=== PATIENT | female | born 1945 | race Caucasian/White ===

== ENCOUNTER 2019-04-26 19:25 | Inpatient (IN) | payer OTHER ==
[~2019-04-26] VITALS: Ht 152.4 cm; Wt 60.8 kg
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
[2019-04-26 21:09] LABS: BASOPHIL % 0.4 % (0-2)
[2019-04-26 21:13] LABS: RED CELL DISTRIBUTION WIDTH 16.1 % (11.5-14.5)
[2019-04-26 21:14] LABS: PLATELET COUNT 563 x10^3mcL (130-400)
[2019-04-26 21:16] LABS: CARBON DIOXIDE 28.6 mmol/L (21-32); CHLORIDE SERUM 92 mmol/L (98-107); CREATININE SERUM 0.5 mg/dL (0.6-1.0); GLUCOSE SERUM 90 mg/dL (74-106); POTASSIUM SERUM 4.1 mmol/L (3.5-5.1); SODIUM SERUM 126 mmol/L (136-145)
[2019-04-26 21:21] LABS: ALKALINE PHOSPHATASE 107 U/L (46-116); ALT/SGPT 20 U/L (14-59); AST/SGOT 11 U/L (15-37); BILIRUBIN TOTAL 0.3 mg/dL (0.20-1.00); TOTAL PROTEIN, SERUM 7.2 g/dL (6.4-8.2)
[2019-04-26 21:22] LABS: ALBUMIN 2.7 g/dL (3.4-5.0)
--- NOTE | 2019-04-26 21:35 | NUR ---
PT GIVEN 30MG TORADOL IVP AT THIS TIME FOR PAIN TO ATTEMPT TO GET ONTO BED BURRIS TO URINATE. VERBAL ORDER THAT WILL BE PLACED BY MD ROSADO
--- NOTE | 2019-04-26 21:54 | NUR ---
PT VOIDED AT THIS TIME IN BED BURRIS AND ASSISTED OFF OF BURRIS
[2019-04-26] MEDS ORDERED: METOPROLOL SUCC50 M2 PO ×2 (22:03)
--- NOTE | 2019-04-26 22:18 | NUR ---
RECEIVED REPORT FROM ED NURSE. AWAITING FOR ARRIVAL.
--- NOTE | 2019-04-26 22:19 | NUR ---
REPORT GIVEN TO YADIRA GUERRIER. ALL QUESTONS AND CONCERNS ADDRESSED AT THIS TIME
--- NOTE | 2019-04-26 22:40 | NUR ---
RECEIVED PT FROM ED [facility]IA [employer], PT STATED THAT SHE HAS LEFT HIP PAIN AND UNABLE TO WALK FOR 5 DAYS, STARTED WHEN SHE WAS TRYING TO GET OUT OF BED. PT DENIES FALL/SYNCOPAL EPISODES. AAOX4. DENIES HEADACHE/DIZZINESS. ABLE TO FOLLOW COMMANDS. NO SOB NOTED. LUNG SOUNDS CTA, O2 SAT=98%, RA. DENIES CHEST PAIN/PRESSURE, DD=104. W/ +3 EDEMA ON BILATERAL FEET AND +2 ON BLE. PULSES ARE PALPABLE. DENIES ABDOMINAL DISCOMFORT. LAST BM=04/26/18. URINE INCONTINENT. C/O 11/27 LEFT HIP PAIN WORSE ON MOVEMENT. PT HAS DEFORMITIES ON THE TOES. IV SITE PATENT AND INTACT. SIDE RAILS UPX2. CALL LIGHT ON REACH. ENDORSED TO PRIMARY NURSE CINDY FOR CONTINUITY OF CARE
[2019-04-26 22:55] VITALS: BP 158/97
[2019-04-26 23:03] VITALS: Ht 152.4 cm; Wt 60.8 kg
--- NOTE | 2019-04-26 23:11 | NUR ---
MADE DR. CRUZ AWARE PT DOES NOT LIKE NARCOTICS, TORADOL 15MG IV Q6H PRN WAS ORDERED. RECOMMENDED TO INSERT ADAMS CATHETER, BUT HE SAID NO. WILL CONTINUE TO MONITOR.
--- NOTE | 2019-04-26 23:25 | NUR ---
RECEIVED PT, MEDICATED WITH TYLENOL PRN PER JUN ORDER. WILL REASSESS AND CHECK EFFECTIVENESS. BREATHING IS EVEN AND UNLABORED ON RA. NO SIGNS OF RESP. DISTRESS. BED IN LOWEST POSITION. CALL LIGHT WITHIN REACH. WILL CONTINUE TO MONITOR.
--- NOTE | 2019-04-27 01:48 | NUR ---
ASSISTED PT ON TO BED BURRIS. BREATHING IS EVEN AND UNLABORED ON RA. NO SIGNS OF RESP. DISTRESS. NO COMPLAINTS OF PAIN AT THIS TIME. BED IN LOWEST POSITION. CALL LIGHT WITHIN REACH. WILL CONTINUE TO MONITOR.
--- NOTE | 2019-04-27 04:20 | NUR ---
PT C/O 10/27 PAIN ON L LEG. MEDICATED WITH TORADOL PRN PER JUN ORDER. WILL REASSESS AND CHECK EFFECTIVENESS. CURRENTLY ON BED BURRIS. BREATHING IS EVEN AND UNLABORED ON RA. NO SIGNS OF RESP. DISTRESS. BED IN LOWEST POSITION. CALL LIGHT WITHIN REACH. WILL CONTINUE TO MONITOR.
[2019-04-27 06:01] VITALS: BP 149/88
--- NOTE | 2019-04-27 06:41 | NUR ---
DR. MARIE IN TO SEE PT AT THIS TIME.
[2019-04-27 06:52] LABS: CALCIUM 8.5 mg/dL (8.5-10.1); CARBON DIOXIDE 27.9 mmol/L (21-32); CHLORIDE SERUM 100 mmol/L (98-107); CREATININE SERUM 0.4 mg/dL (0.6-1.0); GLUCOSE SERUM 86 mg/dL (74-106); POTASSIUM SERUM 3.9 mmol/L (3.5-5.1); SODIUM SERUM 134 mmol/L (136-145)
--- NOTE | 2019-04-27 06:57 | NUR ---
PT SLEPT IN SHORT INTERVALS THROUGHOUT THE NIGHT AND COMPLIED WITH NURSING CARE WITH NO ACUTE EVENTS OCCURRING DURING THE SHIFT. COMFORT AND SAFETY MEASURES MAINTAINED. ALL NEEDS ASSESSED AND ATTENDED TO. WILL CONTINUE TO MONITOR AND ENDORSE CARE TO DAY SHIFT NURSE.
--- NOTE | 2019-04-27 07:50 | NUR ---
RECEIVED PATIENT RESTING IN BED, NO ACUTE DISTRESS NOTED. PATIENT C/O OF MILD PAIN TO LLE 07/28, STATES PAIN IS TOLERABLE. PATIENT A/OX4, DENIES EDMOND. EDEMA NOTED TO BLE. PATIENT DENIES SOB, ON ROOM AIR. PATIENT VOIDS FREELY. WEAKNESS NOTED TO LEFT SIDE, DEFORMITIES NOTED TO THE TOES. NS IV INFUSING TO LAC AT 70ML/HR, IV SITE CDI&PATENT. CALL LIGHT WITHIN REACH, BED IN LOW POSITION, WILL CONTINUE TO MONITOR.
[2019-04-27 08:23] VITALS: BP 156/100
--- NOTE | 2019-04-27 10:00 | NUR ---
REASSESSED PATIENT BP AFTER MORNING MEDICATIONS GIVEN, PATIENT BP DECREASED TO 132/77. NO ACUTE DISTRESS NOTED, DENIES HEADACHE&DIZZINESS. WILL CONTINUE TO MONITOR. CALL LIGHT WITHIN REACH.
--- NOTE | 2019-04-27 10:30 | NUR ---
DR. CRUZ GAVE TORB TO PLACE PATIENT NPO AT MIDNIGHT, PATIENT IS SCHEDULE TO HAVE SURGERY TOMORROW. WILL CARRY OUT ORDERS AT THIS TIME.
[2019-04-27 11:50] VITALS: BP 137/77
--- NOTE | 2019-04-27 12:10 | NUR ---
ECHOCARDIOGRAM COMPLETED.
[2019-04-27 15:45] VITALS: BP 137/77
--- NOTE | 2019-04-27 16:23 | NUR ---
PATIENT RESTING IN BED, NO ACUTE DISTRESS NOTED. PATIENT DENIES PAIN. DENIES SOB, ON ROOM AIR. ALL NEEDS MET AT THIS TIME. PATIENT AWARE PICK TIME FOR TRANSFER IS AT 1800. WILL CONTINUE TO MONITOR.
[2019-04-27 16:51] VITALS: BP 158/94
--- NOTE | 2019-04-27 16:59 | NUR ---
PATIENT HAD A TEMP OF 100.4, MEDICATED PATIENT WITH TYLENOL PER PROTOCOL(SEE EMAR). COOLING MEASURE WERE STARTED, ICE PACKS APPLIED, AND AC ON, WITH HEAVY BLANKETS REMOVED. WILL REASSESS TEMP.
--- NOTE | 2019-04-27 18:11 | NUR ---
REPORT GIVEN TO NURSE PIÑA AT [facility].
--- NOTE | 2019-04-27 18:20 | NUR ---
PATIENT RECEIVED COPY OF D/C INSTRUCTIONS, PATIENT UNDERSTANDS AND AGREES WITH D/C INSTRUCTIONS AND PLAN OF CARE. ALL QUESTIONS AND CONCERNS ADDRESSED. NO RESP. DISTRESS NOTED, DENIES SOB. PATIENT DENIES PAIN UPON D/C. IV TO LAC CDI&PATENT. ALL NEEDS MET AT THIS TIME. PATIENT IS TO BE TRANSFERRED TO [facility] VIA [facility].
== END 2019-04-27 18:00 | disposition short-term general hospital (02) | DRG 543 ==
LOC: ED 19:25 → MU 21:57
PROVIDERS: Emergency Medicine; ADMIT Internal Medicine Pulmonary Disease
DX: M84.452A Pathological fracture, left femur, initial encounter for fracture (principal); E87.1 Hypo-osmolality and hyponatremia; I10 Essential (primary) hypertension; M19.90 Unspecified osteoarthritis, unspecified site; M80.052A Age-related osteoporosis with current pathological fracture, left femur, initial encounter for fracture
CPT/HCPCS: G0378; J1650; J1885; J7030